=== PATIENT | female | born 1955 | race Caucasian/White ===

== ENCOUNTER 2021-02-23 09:08 | Emergency (ER) | payer MEDICARE, MEDICAID ==
[~2021-02-23] VITALS: Ht 152.4 cm; Wt 59.0 kg
[2021-02-23 09:26] VITALS: BP 133/49
== END 2021-02-23 10:34 | disposition home or self-care (01) ==
LOC: ER 09:08
DX: Z48.02 Encounter for removal of sutures (principal); E11.9 Type 2 diabetes mellitus without complications
CPT/HCPCS: 99281

== ENCOUNTER 2021-03-25 10:35 | Emergency (ER) | payer MEDICARE, MEDICAID ==
[~2021-03-25] VITALS: Ht 152.4 cm; Wt 59.0 kg
[2021-03-25] MEDS ORDERED: ACETAMINOPHEN 325MG TABLET PO ONE (14:30)
[2021-03-25] MEDS ORDERED: ACET-2708 MT (17:50)
[2021-03-25 18:32] VITALS: BP 149/84
== END 2021-03-25 18:33 | disposition home or self-care (01) ==
LOC: ER 10:35
DX: M25.552 Pain in left hip (principal); R51.9 Headache, unspecified; I10 Essential (primary) hypertension; E11.9 Type 2 diabetes mellitus without complications; W01.0XXA Fall on same level from slipping, tripping and stumbling without subsequent striking against object, initial encounter; Y93.89 Activity, other specified; Y92.89 Other specified places as the place of occurrence of the external cause; Y99.8 Other external cause status
CPT/HCPCS: 70486; 73502; 99285

== ENCOUNTER 2021-08-13 11:12 | Emergency (ER) | payer MEDICARE, MEDICAID ==
[~2021-08-13] VITALS: Ht 152.4 cm; Wt 64.0 kg
[~2021-08-13 11:12] MED LIST: ACET-2708 MT
[2021-08-13 11:36] VITALS: BP 165/65
[2021-08-13] MEDS ORDERED: NAPROXEN 375MG TABLET PO STA (12:30)
[2021-08-13] MEDS ORDERED: NAPR-679 PO (14:07)
== END 2021-08-13 14:23 | disposition home or self-care (01) ==
LOC: ER 11:12
DX: M16.0 Bilateral primary osteoarthritis of hip (principal); E11.9 Type 2 diabetes mellitus without complications
CPT/HCPCS: 73502; 99283

== ENCOUNTER 2021-11-06 09:36 | Inpatient (IN) | payer MEDICARE, MEDICAID ==
[~2021-11-06] VITALS: Ht 152.4 cm; Wt 70.9 kg
[~2021-11-06 09:36] MED LIST changes: +NAPR-679 PO
[2021-11-06] MEDS ORDERED: ONDANSETRON HCL 4MG/2ML INJ IV STA (09:50)
[2021-11-06] MEDS ORDERED: SODIUM CHLORIDE 0.9% 1,000 ML IV ONE (10:00)
[2021-11-06 10:22] LABS: BASOPHILS % 0.8 % (0.0-2.0); EOSINOPHILS % 1.2 % (0.0-5.0); HEMATOCRIT. 33.4 % (36.0-48.0); HEMOGLOBIN. 10.9 g/dL (12.0-16.0); LYMPHOCYTES % 7.7 % (20.0-50.0); MEAN PLATELET VOLUME 11.3 fl (7.4-10.4); NEUTROPHILS % 86.3 % (40.0-76.0); PLATELET 159 x1000/uL (130-400); RED BLOOD CELL COUNT 3.89 mill/uL (4.2-5.4); RED CELL DISTRIBUTION WIDTH 14.1 % (11.6-14.6)
[2021-11-06 10:27] LABS: CHLORIDE 111 mEq/L (98-107)
[2021-11-06] MEDS ORDERED: ACETAMINOPHEN 325MG TABLET PO NR (11:15)
[2021-11-06] MEDS ORDERED: KETOROLAC 30MG/ML VIAL IM NR (11:15)
[2021-11-06 11:36] LABS: CLARITY URINE CLEAR (CLEAR); COLOR URINE ORANGE (YELLOW); KETONES URINE NEGATIVE (NEGATIVE); LEUKOCYTE ESTERASE URINE 1+ (NEGATIVE); NITRITE URINE POSITIVE (NEGATIVE); OCCULT BLOOD URINE 1+ (NEGATIVE); PROTEIN URINE 1+ (NEGATIVE); SPECIFIC GRAVITY URINE 1.021 (1.005-1.030)
[2021-11-06] MEDS ORDERED: SODIUM CHLORIDE 0.9% 1,000 ML IV NR (12:00)
[2021-11-06] MEDS ORDERED: CEFTRIAXONE 1 G PREMIX 50 ML IV ONE (13:15)
[2021-11-06] MEDS ORDERED: HYDRALAZINE 20MG/ML VIAL IV NR (17:15)
[2021-11-06] MEDS ORDERED: DEXTROSE 50% WATER 50ML SYRINGE IV PRN (22:30)
[2021-11-06] MEDS ORDERED: GUAIFENESIN 200MG/10ML SUGAR FREE UDC PO PRN (22:30)
[2021-11-06] MEDS ORDERED: NITROGLYCERIN 0.4MG TABLET SL SL PRN (22:30)
[2021-11-06] MEDS ORDERED: MAGNESIUM/ALUMINUM HYDROXIDE/SIMETHICONE 30ML UDC PO PRN (22:30)
[2021-11-06] MEDS ORDERED: SODIUM CHLORIDE 0.9% 1000ML BAG (SEPSIS BOLUS) IV NR (22:30)
[2021-11-06] MEDS ORDERED: NA PHOS,M-B/NA PHOS,DI-BA ENEMA 118ML PR PRN (22:30)
[2021-11-06] MEDS ORDERED: ZOLPIDEM TARTRATE 5MG TABLET PO PRN (22:30)
[2021-11-06] MEDS ORDERED: ONDANSETRON HCL 4MG/2ML INJ IV PRN (22:30)
[2021-11-06] MEDS ORDERED: IPRATROPIUM/ALBUTEROL 0.5-3(2.5)MG/3ML NEB NEB PRN (22:30)
[2021-11-06] MEDS ORDERED: LEVOFLOXACIN 500MG PREMIX 100 ML IV NR (23:00)
[2021-11-06] MEDS ORDERED: ENOXAPARIN 30MG/0.3ML SYR SUBCUT SCH (23:30)
[2021-11-07 00:25] LABS: T4 FREE 1.05 ng/dL (0.76-1.46)
[2021-11-07 01:38] LABS: FOLIC ACID (FOLATE) SERUM >20 ng/mL ng/mL (>5.38); VITAMIN B12 SERUM 600 pg/mL (211-911)
[2021-11-07] MEDS: INSULIN LISPRO 100 UNITS/ML SUBCUT SCH ×4 (08:20→21:00)
[2021-11-07] MEDS ORDERED: ASPIRIN 325MG EC TABLET PO SCH (09:00)
[2021-11-07] MEDS ORDERED: CEFTRIAXONE 1 G PREMIX 50 ML IV SCH (09:00)
[2021-11-07] MEDS: BLOOD SUGAR DIAGNOSTIC STRIP TEST SCH ×4 (09:00→20:16)
[2021-11-07 09:15] VITALS: BP 112/42
[2021-11-07] MEDS: FAMOTIDINE 20MG TABLET PO SCH ×2 (10:25→20:44)
[2021-11-07] MEDS: ASCORBIC ACID 500 MG TABLET PO SCH ×2 (10:26→20:44)
[2021-11-07] MEDS: ZINC SULFATE 220 MG ( 50 ) CAPSULE PO SCH (10:26)
[2021-11-07] MEDS: METOPROLOL TARTRATE 25MG TABLET PO SCH ×2 (10:27→20:36)
[2021-11-07] MEDS: CHOLECALCIFEROL (D3) 1000 UNIT TABLET PO SCH (10:28)
[2021-11-07] MEDS: ENOXAPARIN 30MG/0.3ML SYR SUBCUT SCH (10:28)
[2021-11-07 12:00] VITALS: BP 131/58
[2021-11-07 12:00] LABS: *AMPHETAMINES SCREEN URINE NEGATIVE (NEGATIVE); *BARBITURATES SCREEN URINE NEGATIVE (NEGATIVE); *BENZODIAZEPINES SCREEN URINE NEGATIVE (NEGATIVE); *COCAINE SCREEN URINE NEGATIVE (NEGATIVE); CANNABINOID URINE SCREEN NEGATIVE (NEGATIVE); METHADONE URINE SCREEN NEGATIVE (NEGATIVE); OPIATES URINE SCREEN NEGATIVE (NEGATIVE); PHENCYCLIDINE URINE SCREEN NEGATIVE (NEGATIVE)
[2021-11-07 12:24] LABS: BASOPHILS % 0.6 % (0.0-2.0); EOSINOPHILS % 2.6 % (0.0-5.0); HEMATOCRIT. 28.8 % (36.0-48.0); HEMOGLOBIN. 8.8 g/dL (12.0-16.0); LYMPHOCYTES % 12.9 % (20.0-50.0); MEAN CORPUSCULAR HEMOGLOBIN 28.3 pg (28.0-32.0); MEAN CORPUSCULAR VOLUME 92.6 fL (81.0-99.0); MEAN PLATELET VOLUME 12.1 fl (7.4-10.4); MONOCYTES % 6.3 % (2.0-8.0); NEUTROPHILS % 77.6 % (40.0-76.0); PLATELET 123 x1000/uL (130-400); RED BLOOD CELL COUNT 3.11 mill/uL (4.2-5.4); RED CELL DISTRIBUTION WIDTH 15.6 % (11.6-14.6)
[2021-11-07 12:45] LABS: CREATINE KINASE MB FRACTION 2.2 ng/mL (0.5-3.6)
[2021-11-07] MEDS: AMLODIPINE 10MG TABLET PO SCH (14:58)
[2021-11-07] MEDS: CEFTRIAXONE 1,000 MG in DEXTROSE 5% WATER 50 ML IV SCH (14:59)
[2021-11-07] MEDS: KETOROLAC 15MG/ML VIAL IV PRN (15:05)
[2021-11-07 16:00] VITALS: BP 196/46
[2021-11-07] MEDS ORDERED: LEVOFLOXACIN 250MG PREMIX 50 ML IV SCH ×2 (16:00→23:00)
[2021-11-07] MEDS: CLONIDINE 0.1MG TABLET PO PRN (17:32)
[2021-11-07] MEDS ORDERED: PNEUMOCOCCAL 23-VAL P-SAC VAC 0.5 ML IM ONE (18:00)
[2021-11-07 20:00] VITALS: BP 101/40
[2021-11-08] VITALS: BP 110/42
[2021-11-08 04:00] VITALS: BP 120/48
[2021-11-08] MEDS: BLOOD SUGAR DIAGNOSTIC STRIP TEST SCH ×4 (05:39→20:53)
[2021-11-08] MEDS: INSULIN LISPRO 100 UNITS/ML SUBCUT SCH ×4 (06:29→20:57)
[2021-11-08 08:00] VITALS: BP 171/48
[2021-11-08] MEDS: ENOXAPARIN 30MG/0.3ML SYR SUBCUT SCH (10:32)
[2021-11-08] MEDS: ZINC SULFATE 220 MG ( 50 ) CAPSULE PO SCH (10:33)
[2021-11-08] MEDS: DOCUSATE SODIUM 100MG CAPSULE PO PRN (10:33)
[2021-11-08] MEDS: ASCORBIC ACID 500 MG TABLET PO SCH ×2 (10:34→20:47)
[2021-11-08] MEDS: METOPROLOL TARTRATE 25MG TABLET PO SCH ×2 (10:34→20:53)
[2021-11-08] MEDS: FAMOTIDINE 20MG TABLET PO SCH ×2 (10:35→20:46)
[2021-11-08] MEDS: AMLODIPINE 10MG TABLET PO SCH (10:35)
[2021-11-08] MEDS: CHOLECALCIFEROL (D3) 1000 UNIT TABLET PO SCH (10:36)
[2021-11-08] MEDS: CLONIDINE 0.1MG TABLET PO PRN (10:36)
[2021-11-08 12:00] VITALS: BP 143/56
[2021-11-08] MEDS: CEFTRIAXONE 1,000 MG in DEXTROSE 5% WATER 50 ML IV SCH (15:19)
[2021-11-08] MEDS: LEVOFLOXACIN 250MG TABLET PO SCH (15:33)
[2021-11-08 16:00] VITALS: BP 117/54
[2021-11-08] MEDS: ACETAMINOPHEN 325MG TABLET PO PRN (17:43)
[2021-11-08 20:00] VITALS: BP 122/50
[2021-11-08] MEDS: KETOROLAC 15MG/ML VIAL IV PRN (20:48)
[2021-11-09] VITALS: BP 135/56
[2021-11-09 04:00] VITALS: BP 144/53
[2021-11-09] MEDS: INSULIN LISPRO 100 UNITS/ML SUBCUT SCH ×4 (06:04→20:41)
[2021-11-09] MEDS: BLOOD SUGAR DIAGNOSTIC STRIP TEST SCH ×4 (06:04→20:41)
[2021-11-09 08:00] VITALS: BP 144/55
[2021-11-09] MEDS: ASCORBIC ACID 500 MG TABLET PO SCH ×2 (08:41→20:35)
[2021-11-09] MEDS: CHOLECALCIFEROL (D3) 1000 UNIT TABLET PO SCH (08:41)
[2021-11-09] MEDS: AMLODIPINE 10MG TABLET PO SCH (08:42)
[2021-11-09] MEDS: FAMOTIDINE 20MG TABLET PO SCH ×2 (08:42→20:35)
[2021-11-09] MEDS: METOPROLOL TARTRATE 25MG TABLET PO SCH ×2 (08:42→20:36)
[2021-11-09] MEDS: ZINC SULFATE 220 MG ( 50 ) CAPSULE PO SCH (08:43)
[2021-11-09] MEDS: ENOXAPARIN 30MG/0.3ML SYR SUBCUT SCH (08:43)
[2021-11-09] MEDS: LEVOFLOXACIN 250MG TABLET PO SCH (11:38)
[2021-11-09 12:00] VITALS: BP 158/70
[2021-11-09] MEDS: CEFTRIAXONE 1,000 MG in DEXTROSE 5% WATER 50 ML IV SCH (14:25)
[2021-11-09 16:00] VITALS: BP 133/52
[2021-11-09 20:00] VITALS: BP 143/83
[2021-11-09] MEDS: ACETAMINOPHEN 325MG TABLET PO PRN (20:35)
[2021-11-10] VITALS: BP_SYST 125; BP_SYST 143; BP_DIAS 78; BP_DIAS 83
[2021-11-10 04:00] VITALS: BP 169/54
[2021-11-10] MEDS: DOCUSATE SODIUM 100MG CAPSULE PO PRN (04:37)
[2021-11-10] MEDS: CLONIDINE 0.1MG TABLET PO PRN (04:43)
[2021-11-10] MEDS: INSULIN LISPRO 100 UNITS/ML SUBCUT SCH (05:09)
[2021-11-10] MEDS: BLOOD SUGAR DIAGNOSTIC STRIP TEST SCH (05:09)
[2021-11-10 07:40] VITALS: BP 109/44
[2021-11-10] MEDS: ZINC SULFATE 220 MG ( 50 ) CAPSULE PO SCH (08:16)
[2021-11-10] MEDS: CHOLECALCIFEROL (D3) 1000 UNIT TABLET PO SCH (08:16)
[2021-11-10] MEDS: ASCORBIC ACID 500 MG TABLET PO SCH (08:16)
[2021-11-10] MEDS: FAMOTIDINE 20MG TABLET PO SCH (08:16)
[2021-11-10] MEDS: ENOXAPARIN 30MG/0.3ML SYR SUBCUT SCH (08:17)
[2021-11-10] MEDS: METOPROLOL TARTRATE 25MG TABLET PO SCH (08:17)
[2021-11-10] MEDS: AMLODIPINE 10MG TABLET PO SCH (08:17)
[2021-11-10] MEDS ORDERED: LEVO500T89 MT (09:52)
[2021-11-10 09:55] VITALS: BP 109/44
[2021-11-10 10:35] LABS: BASOPHILS % 0.6 % (0.0-2.0); EOSINOPHILS % 3.1 % (0.0-5.0); LYMPHOCYTES % 11.2 % (20.0-50.0); MEAN CORPUSCULAR HEMOGLOBIN 28.2 pg (28.0-32.0); MEAN CORPUSCULAR VOLUME 87.5 fL (81.0-99.0); MEAN PLATELET VOLUME 11.9 fl (7.4-10.4); NEUTROPHILS % 79.1 % (40.0-76.0); PLATELET 119 x1000/uL (130-400); RED CELL DISTRIBUTION WIDTH 14.4 % (11.6-14.6)
== END 2021-11-10 11:22 | disposition home health service (06) | DRG 872 ==
LOC: ER 09:36 → 8WST 17:03 → SUPCPDRO 22:22 → ENRESERV 11-07 08:26
PROVIDERS: ADMIT Internal Medicine; ATTEND Internal Medicine
DX: A41.9 Sepsis, unspecified organism (principal); N39.0 Urinary tract infection, site not specified; N17.9 Acute kidney failure, unspecified; I16.1 Hypertensive emergency; D63.8 Anemia in other chronic diseases classified elsewhere; D69.6 Thrombocytopenia, unspecified; E11.9 Type 2 diabetes mellitus without complications; E78.00 Pure hypercholesterolemia, unspecified; E78.5 Hyperlipidemia, unspecified; I10 Essential (primary) hypertension; I27.20 Pulmonary hypertension, unspecified; M19.90 Unspecified osteoarthritis, unspecified site; D64.9 Anemia, unspecified; I16.0 Hypertensive urgency; Z90.49 Acquired absence of other specified parts of digestive tract
CPT/HCPCS: 36415; 76770; 80048; 80053; 80061; 80305; 81003; 82550; 82553; 82607; 82746; 82962; 83036; 83540; 83550; 83605; 83735; 84100; 84145; 84439; 84443; 84484; 85025; 93005; 93306; 93970; 97162; 97165; 99285; J0696; J1650; J1885; J1956; J2405; J7030; J7060

== ENCOUNTER 2024-07-26 12:11 | Emergency (ER) | payer MEDICARE, MEDICAID ==
[~2024-07-26] VITALS: Ht 172.7 cm; Wt 70.0 kg
[~2024-07-26 12:11] MED LIST changes: +LEVO-65 MT; -NAPR-679 PO
[2024-07-26] MEDS: PIPERACILLIN/TAZO 3.375G/50ML 50 ML IV ONE (12:30)
[2024-07-26] MEDS: SODIUM CHLORIDE 0.9% (SEPSIS BOLUS) IV ONE (12:30)
[2024-07-26] MEDS: HALOPERIDOL LACTATE 5MG/ML VIAL IM ONE (13:11)
[2024-07-26 14:26] LABS: BG BASE EXCESS -17.9 mmol/L (-2.0-3.0); BG CARBOXYHEMOGLOBIN 1.2 % (0.5-1.5); BG DEOXYHEMOGLOBIN 0.9 % (0.0-5.0); BG FRACTION INSPIRED OXYGEN 100; BG HCO3 ACT 8.3 mmol/L (21.0-28.0); BG METHEMOGLOBIN 0.3 % (0.5-1.5); BG OXYGEN SATURATION 99.1 % (94.0-98.0); BG OXYHEMOGLOBIN 97.6 % (94.0-98.0); BG PCO2 21.4 mmHg (32.0-45.0); BG PH 7.206 (7.350-7.450); BG PO2 169.6 mmHg (83.0-108.0); BG SAMPLE SITE RIGHT BRACHIAL; BG TOTAL HEMOGLOBIN 9.6 g/dL (12.0-16.0); BG VENT MODE MASK - NRB
[2024-07-26] MEDS: VANCOMYCIN 1G PREMIX 200 ML IV ONE (14:35)
[2024-07-26 14:36] LABS: HEMATOCRIT. 31.2 % (36.0-48.0); HEMOGLOBIN. 8.9 g/dL (12.0-16.0); MEAN CORPUSCULAR HEMOGLOBIN 23.4 pg (28.0-32.0); MEAN CORPUSCULAR HGB CONC 28.4 g/dL (31.0-37.0); MEAN CORPUSCULAR VOLUME 82.4 fL (81.0-99.0); MEAN PLATELET VOLUME 10.1 fl (7.4-10.4); PLATELET 103 x1000/uL (130-400); RED BLOOD CELL COUNT 3.79 mill/uL (4.2-5.4); RED CELL DISTRIBUTION WIDTH 21.5 % (11.6-14.6); WHITE BLOOD COUNT 24.6 x1000/uL (4.5-11.0)
[2024-07-26 14:44] LABS: CHLORIDE 106 mEq/L (98-107); POTASSIUM 6.1 mEq/L (3.5-5.1); SODIUM 140 mEq/L (136-145)
[2024-07-26 14:45] LABS: CALCIUM 7.7 mg/dL (8.7-10.4)
[2024-07-26 14:49] LABS: CREATININE 2.8 mg/dL (0.6-1.0)
[2024-07-26 14:50] LABS: AMMONIA 59 uMol/L (<32); GLUCOSE 223 mg/dL (70-105); UREA NITROGEN BLOOD 90 mg/dL (9-23)
[2024-07-26 14:51] LABS: ALANINE AMINOTRANSFERASE 238 IU/L (10-49); ASPARTATE AMINOTRANSFERASE 857 IU/L (<34); CARBON DIOXIDE < 10 mEq/L (21-32); LACTATE DEHYDROGENASE > 750 IU/L (120-246)
[2024-07-26 14:52] LABS: ALBUMIN 2.5 g/dL (3.2-4.8); BILIRUBIN DIRECT 2.7 mg/dL (<=3.0); BILIRUBIN TOTAL 3.5 mg/dL (0.1-1.0); CREATINE KINASE 174 IU/L (34-145); INR 3.7; PROTHROMBIN TIME 37.1 sec (9.6-11.0)
[2024-07-26 14:54] LABS: ETHANOL BLOOD < 10 mg/dL (<10); LACTIC ACID 12.5 mmol/L (0.4-2.0); PROTEIN TOTAL 5.1 g/dL (6.0-8.3); TROPONIN I HIGH SENSITIVITY 48 ng/L (3.0-34)
[2024-07-26] MEDS ORDERED: CALCIUM GLUCONATE 1,000 MG in DEXT 5% WATER 100 ML IV ONE (15:00)
[2024-07-26] MEDS ORDERED: ALBUTEROL (0.083%) 2.5MG/3ML NEB HHN SCH (15:00)
[2024-07-26 15:06] LABS: DIFFERENTIAL COMMENT 1
[2024-07-26 15:32] LABS: HYPOCHROMASIA 1+; MICROCYTOSIS 1+; NUCLEATED RED BLOOD CELLS 3 /100 WBC; PLATELET ESTIMATE NORMAL
[2024-07-26] MEDS: DEXTROSE 50% WATER 50ML SYRINGE IV ONE (15:52)
[2024-07-26] MEDS: MIDAZOLAM HCL 2 MG/2 ML VIAL IV ONE (15:53)
[2024-07-26] MEDS: CALCIUM GLUCONATE 1GM PREMIX 50 ML IV NR (15:53)
[2024-07-26] MEDS: SODIUM BICARBONATE 8.4% 50MEQ/50ML SYR IV ONE (15:53)
[2024-07-26] MEDS: INSULIN REGULAR (HUMULIN R) 1000UNITS/10ML VIAL IV ONE (15:54)
[2024-07-26] MEDS ORDERED: SUCCINYLCHOLINE CHLORIDE 200MG/10ML IV ONE (16:00)
[2024-07-26] MEDS: ROCURONIUM BROMIDE 10MG/ML VIAL 5ML IV ONE (16:32)
[2024-07-26] MEDS: ETOMIDATE 2MG/ML 10ML VIAL IV ONE (16:32)
[2024-07-26 16:35] VITALS: PULSE 87; RESP 18; O2SAT 97
[2024-07-26] MEDS: NOREPINEPHRINE 8MG/250ML PMX 250 ML IV ONE (16:35)
[2024-07-26 17:30] VITALS: TEMP 34.9
[2024-07-26] MEDS ORDERED: DEXTROSE 50% WATER 50ML SYRINGE IV PRN (17:45)
[2024-07-26] MEDS ORDERED: IPRATROPIUM/ALBUTEROL 0.5-3(2.5)MG/3ML NEB HHN PRN (17:45)
[2024-07-26] MEDS ORDERED: GUAIFENESIN 200MG/10ML SUGAR FREE UDC PO PRN (17:45)
[2024-07-26] MEDS ORDERED: ONDANSETRON HCL 4MG/2ML INJ IV PRN (17:45)
[2024-07-26] MEDS ORDERED: ACETAMINOPHEN 325MG TABLET PO PRN ×2 (17:45)
[2024-07-26] MEDS ORDERED: PHENYLEPHRINE 50MG/250ML PMX 250 ML IV PRN (17:45)
[2024-07-26] MEDS ORDERED: DOCUSATE SODIUM 100MG CAPSULE PO PRN (17:45)
[2024-07-26] MEDS ORDERED: MIDAZOLAM HCL 100 MG in SODIUM CHLORIDE 0.9% 80 ML IV PRN (17:45)
[2024-07-26 18:00] VITALS: O2SAT 98
[2024-07-26] MEDS: MIDAZOLAM 100MG/100ML PREMIX IV PRN (18:00)
[2024-07-26] MEDS: MIDAZOLAM HCL 100 MG in DEXT 5% WATER 80 ML IV ONE (18:00)
[2024-07-26] MEDS: INSULIN LISPRO 100 UNITS/ML SUBCUT SCH (18:20)
[2024-07-26] MEDS ORDERED: DEXT 5%/0.45% NACL 1000ML 1,000 ML IV SCH (18:45)
[2024-07-26 18:58] VITALS: PULSE 102; RESP 18; O2SAT 95
[2024-07-26 19:59] LABS: TRIGLYCERIDE 174 mg/dL (0-150)
[2024-07-26 20:00] LABS: LDL CHOLESTEROL 62 mg/dL (5-100)
[2024-07-26 20:01] LABS: CHOLESTEROL 105 mg/dL (<200); HDL CHOLESTEROL < 20 mg/dL (>65); PHOSPHORUS 6.9 mg/dL (2.5-4.9)
[2024-07-26] MEDS: NOREPINEPHRINE 8MG/250ML PMX 250 ML IV PRN (20:03)
[2024-07-26 20:06] LABS: URIC ACID 21.4 mg/dL (3.1-7.8)
[2024-07-26 20:39] LABS: PREALBUMIN < 5.0 mg/dl (10.0-40.0)
[2024-07-26] MEDS ORDERED: FENTANYL 2500MCG/250ML PMX 250 ML IV ONE (20:45)
[2024-07-26] MEDS: FENTANYL CITRATE/PF 1,000 MCG in DEXT 5% WATER 80 ML IV PRN (21:06)
[2024-07-26 21:40] VITALS: PULSE 63; RESP 18; O2SAT 95
[2024-07-26] MEDS: SODIUM BICARBONATE 100 MEQ in SODIUM CHLORIDE 0.45% 900 ML IV SCH (22:00)
[2024-07-26] MEDS: PIPERACILLIN/TAZO 3.375G/50ML 50 ML IV SCH (22:05)
[2024-07-26] MEDS: BLOOD SUGAR DIAGNOSTIC STRIP TEST SCH (22:13)
[2024-07-26] MEDS: DEXT 5%/0.45% NACL 1000ML IV SCH (22:55)
[2024-07-26 23:32] LABS: BG BASE EXCESS -23.1 mmol/L (-2.0-3.0); BG CARBOXYHEMOGLOBIN 0.3 % (0.5-1.5); BG DEOXYHEMOGLOBIN 22.8 % (0.0-5.0); BG FRACTION INSPIRED OXYGEN 100; BG HCO3 ACT 8.8 mmol/L (21.0-28.0); BG METHEMOGLOBIN 0.1 % (0.5-1.5); BG OXYGEN SATURATION 77.1 % (94.0-98.0); BG OXYHEMOGLOBIN 76.8 % (94.0-98.0); BG PCO2 45.5 mmHg (32.0-45.0); BG PH 6.906 (7.350-7.450); BG PO2 66.5 mmHg (83.0-108.0); BG SAMPLE SITE LEFT BRACHIAL; BG TOTAL HEMOGLOBIN 10.3 g/dL (12.0-16.0); BG VENT MODE VENT - AC
[2024-07-26] MEDS ORDERED: NACL IV SCH (23:45)
[2024-07-26] MEDS ORDERED: DEXT IV SCH (23:45)
[2024-07-26] MEDS ORDERED: SODIUM BICARBONATE IV SCH (23:45)
[2024-07-27 00:02] VITALS: PULSE 59; RESP 18
[2024-07-27] MEDS: FAMOTIDINE 20MG/2ML VIAL IV SCH (00:17)
[2024-07-27] MEDS: SODIUM BICARBONATE 8.4% 50MEQ/50ML SYR IV NR (00:19)
[2024-07-27 00:30] VITALS: BP 90/33; PULSE 78; RESP 18; O2SAT 92
[2024-07-27] MEDS: SODIUM BICARBONATE 100 MEQ in SODIUM CHLORIDE 0.45% 900 ML IV SCH (00:51)
[2024-07-27 00:58] LABS: CREATINE KINASE MB FRACTION 17.7 ng/mL (0.5-3.6)
== END 2024-07-27 04:02 ==
LOC: ER 12:13 → EDBEDREQTM 15:22 → EDBEDREQSVC 15:22 → EDBEDREQ 15:22 → ER 07-27 04:02
DX: E78.5 Hyperlipidemia, unspecified (principal); E11.9 Type 2 diabetes mellitus without complications; E55.9 Vitamin D deficiency, unspecified; J96.01 Acute respiratory failure with hypoxia; R65.21 Severe sepsis with septic shock; A41.9 Sepsis, unspecified organism; N17.9 Acute kidney failure, unspecified; E87.5 Hyperkalemia; I21.4 Non-ST elevation (NSTEMI) myocardial infarction; E11.22 Type 2 diabetes mellitus with diabetic chronic kidney disease; E11.65 Type 2 diabetes mellitus with hyperglycemia; I12.9 Hypertensive chronic kidney disease with stage 1 through stage 4 chronic kidney disease, or unspecified chronic kidney disease; I25.2 Old myocardial infarction; N18.4 Chronic kidney disease, stage 4 (severe); Z90.49 Acquired absence of other specified parts of digestive tract; Z92.21 Personal history of antineoplastic chemotherapy; Z93.3 Colostomy status; Z93.6 Other artificial openings of urinary tract status
CPT/HCPCS: 80061; 80076; 80048; 80320; 82140; 82330; 82550; 82553; 82962; 83036; 83880; 83605; 83615; 83690; 83735; 84100; 84134; 84550; 85025; 85610; 86850; 86900; 86901; 87040; 84484; 87804 ×2; 36415; 84145; 71045; 93970; 76700; 82805; 82375; 31500; 93005; 94003; 96367; 96365; 96372; 96375 ×2; 99291; 99292; 82306; 36600; 36556; 96376; J3010; J0610; J1630; J1815 ×2; J3490 ×6; J2250 ×2; J2543; J3370; J7060; J7030; C1893; 94002; G0480